=== PATIENT | male | born 1990 | race American Indian/Alaskan Native ===

== ENCOUNTER 2018-12-19 03:49 | Emergency (ER) | payer OTHER ==
[2018-12-19] MEDS ORDERED: NACL 0.9% 1000 ML 1,000 ML IV ONE (04:24)
[2018-12-19] MEDS ORDERED: KETAMINE HCL IV ONE ×2 (04:24→04:38)
[2018-12-19] MEDS ORDERED: ZOFRAN IV ONE (04:24)
[2018-12-19] MEDS ORDERED: DIPRIVAN 10 MG/ML IV ONE (04:24)
--- NOTE | 2018-12-19 04:27 | Emergency Department Report ---
ED Upper Extremity Inj HPI - General Chief Complaint: Shoulder Injury Stated Complaint: RIGHT SHOULDER PAIN Time Seen by Provider: 12/19/18 04:23 Source: patient, EMS (ems notes not available at time of chart dictation) Mode of arrival: Ambulatory Limitations: Physical Limitation - History of Present Illness Initial Comments: This is a pleasant 28-year-old gentleman, not known to this provider previously, right-hand dominant, with a history of multiple shoulder dislocations. The patient presents to the emergency room today with a complaint of spontaneous shoulder dislocation while sleeping. Patient reports at least 10 left shoulder dislocation, and in the past, has been able to self reduce. However, he has not been able to reduce the shoulder today. He has no other injuries, and no other complaints. MD Complaint: Injury to:: right, shoulder -: Sudden Other Extremity Injury: Shoulder: Left Other Injuries: none Handedness: right Place: home Context: other Associated Symptoms: denies other symptoms - Related Data Previous Rx's Medication Instructions Recorded Last Taken Type Acetaminophen [Tylenol Arthritis] 650 mg PO Q6HR PRN #30 tablet.er 12/19/18 Unknown Rx Ibuprofen [Motrin] 600 mg PO Q8H PRN #30 tablet 12/19/18 Unknown Rx Allergies Allergy/AdvReac Type Severity Reaction Status Date / Time No Known Allergies Allergy Verified 12/19/18 04:28 ED Review of Systems ROS: Stated complaint: RIGHT SHOULDER PAIN Other details as noted in HPI Constitutional: denies: fever Respiratory: denies: cough Cardiovascular: denies: chest pain Gastrointestinal: denies: abdominal pain Musculoskeletal: arthralgia, myalgia Skin: denies: lesions Neurological: denies: weakness, numbness, paresthesias ED Past Medical Hx - Past Medical History Previous Medical History?: No - Social History Smoking Status: Current Every Day Smoker Substance Use Type: None - Medications Home Medications: Home Medications Medication Instructions Recorded Confirmed Last Taken Type Acetaminophen [Tylenol Arthritis] 650 mg PO Q6HR PRN #30 tablet.er 12/19/18 Unknown Rx Ibuprofen [Motrin] 600 mg PO Q8H PRN #30 tablet 12/19/18 Unknown Rx ED Physical Exam - General Limitations: Physical Limitation General appearance: alert, anxious - Head Head exam: Present: atraumatic, normocephalic - Eye Eye exam: Present: normal appearance, EOMI. Absent: nystagmus - ENT ENT exam: Present: normal exam, normal orophraynx, mucous membranes moist - Neck Neck exam: Present: normal inspection, full ROM. Absent: tenderness, meningismus - Respiratory Respiratory exam: Present: normal lung sounds bilaterally. Absent: respiratory distress - Cardiovascular Cardiovascular Exam: Present: regular rate, normal rhythm, normal heart sounds. Absent: bradycardia, tachycardia, irregular rhythm, systolic murmur, diastolic murmur, rubs, gallop - GI/Abdominal GI/Abdominal exam: Present: soft. Absent: distended, tenderness, guarding, rebound, rigid, pulsatile mass - Rectal Rectal exam: Present: deferred - Extremities Exam Extremities exam: Present: tenderness, other (2+ pulses noted in the bilateral upper extremities. Left upper extremity nontender and within normal limits. Right upper extremity shows an obviously deformed shoulder, point tender at the shoulder, no distal right upper extremity tenderness. Moving the fingers bilaterally without difficulty. Muscular compartments soft.Sensation intact to light touch in the bilateral deltoid, median, radial, ulnar distribution.) - Back Exam Back exam: Present: normal inspection, full ROM. Absent: tenderness, CVA tenderness (R), paraspinal tenderness, vertebral tenderness - Neurological Exam Neurological exam: Present: alert, oriented X3, normal gait, other (Extraocular movements intact. Tongue midline. No facial droop. Facial sensation intact to light touch in the V1, V2, V3 distribution bilaterally. 5 and 5 strength in 4 extremities.. Sensation is intact to light touch in 4 extremities.) - Psychiatric Psychiatric exam: Present: normal affect, normal mood - Skin Skin exam: Present: warm, dry, intact, normal color. Absent: rash ED Course Vital Signs 12/19/18 12/19/18 12/19/18 03:52 03:53 04:15 Temperature 99.1 F 98 F Temperature [ Intra-Procedure ] Temperature [ Post-Procedure] Temperature [ Pre-Procedure] Pulse Rate 90 81 90 Pulse Rate [ Intra-Procedure ] Pulse Rate [ Post-Procedure] Pulse Rate [Pre -Procedure] Respiratory 98 H 18 12 Rate Respiratory Rate [Intra- Procedure] Respiratory Rate [Post- Procedure] Respiratory Rate [Pre- Procedure] Blood Pressure 133/85 Blood Pressure [Intra- Procedure] Blood Pressure 145/90 109/57 133/85 [Left] Blood Pressure [Post-Procedure ] Blood Pressure [Pre-Procedure] O2 Sat by Pulse 16 L 99 100 Oximetry O2 Sat by Pulse Oximetry [ Intra-Procedure ] O2 Sat by Pulse Oximetry [Post -Procedure] O2 Sat by Pulse Oximetry [Pre- Procedure] 12/19/18 12/19/18 12/19/18 04:50 04:55 05:01 Temperature Temperature [ 98 F Intra-Procedure ] Temperature [ 98 F Post-Procedure] Temperature [ 98 F Pre-Procedure] Pulse Rate 82 116 H 112 H Pulse Rate [ 116 H Intra-Procedure ] Pulse Rate [ 98 H Post-Procedure] Pulse Rate [Pre 82 -Procedure] Respiratory 13 26 H 23 Rate Respiratory 26 H Rate [Intra- Procedure] Respiratory 25 H Rate [Post- Procedure] Respiratory 13 Rate [Pre- Procedure] Blood Pressure 133/90 129/99 153/100 Blood Pressure 153/100 [Intra- Procedure] Blood Pressure [Left] Blood Pressure 147/98 [Post-Procedure ] Blood Pressure 129/99 [Pre-Procedure] O2 Sat by Pulse 100 100 97 Oximetry O2 Sat by Pulse 100 Oximetry [ Intra-Procedure ] O2 Sat by Pulse 100 Oximetry [Post -Procedure] O2 Sat by Pulse 100 Oximetry [Pre- Procedure] 12/19/18 12/19/18 12/19/18 05:05 05:11 05:15 Temperature Temperature [ Intra-Procedure ] Temperature [ Post-Procedure] Temperature [ Pre-Procedure] Pulse Rate 98 H 86 83 Pulse Rate [ Intra-Procedure ] Pulse Rate [ Post-Procedure] Pulse Rate [Pre -Procedure] Respiratory 25 H 26 H 25 H Rate Respiratory Rate [Intra- Procedure] Respiratory Rate [Post- Procedure] Respiratory Rate [Pre- Procedure] Blood Pressure 147/98 127/84 135/88 Blood Pressure [Intra- Procedure] Blood Pressure [Left] Blood Pressure [Post-Procedure ] Blood Pressure [Pre-Procedure] O2 Sat by Pulse 100 100 100 Oximetry O2 Sat by Pulse Oximetry [ Intra-Procedure ] O2 Sat by Pulse Oximetry [Post -Procedure] O2 Sat by Pulse Oximetry [Pre- Procedure] 12/19/18 12/19/18 12/19/18 05:20 05:30 05:45 Temperature Temperature [ Intra-Procedure ] Temperature [ Post-Procedure] Temperature [ Pre-Procedure] Pulse Rate 81 79 80 Pulse Rate [ Intra-Procedure ] Pulse Rate [ Post-Procedure] Pulse Rate [Pre -Procedure] Respiratory 20 21 19 Rate Respiratory Rate [Intra- Procedure] Respiratory Rate [Post- Procedure] Respiratory Rate [Pre- Procedure] Blood Pressure 125/78 131/89 131/90 Blood Pressure [Intra- Procedure] Blood Pressure [Left] Blood Pressure [Post-Procedure ] Blood Pressure [Pre-Procedure] O2 Sat by Pulse 100 100 100 Oximetry O2 Sat by Pulse Oximetry [ Intra-Procedure ] O2 Sat by Pulse Oximetry [Post -Procedure] O2 Sat by Pulse Oximetry [Pre- Procedure] 12/19/18 12/19/18 12/19/18 06:00 06:15 06:31 Temperature Temperature [ Intra-Procedure ] Temperature [ Post-Procedure] Temperature [ Pre-Procedure] Pulse Rate 84 83 75 Pulse Rate [ Intra-Procedure ] Pulse Rate [ Post-Procedure] Pulse Rate [Pre -Procedure] Respiratory 18 19 20 Rate Respiratory Rate [Intra- Procedure] Respiratory Rate [Post- Procedure] Respiratory Rate [Pre- Procedure] Blood Pressure 138/94 119/74 129/74 Blood Pressure [Intra- Procedure] Blood Pressure [Left] Blood Pressure [Post-Procedure ] Blood Pressure [Pre-Procedure] O2 Sat by Pulse 100 99 Oximetry O2 Sat by Pulse Oximetry [ Intra-Procedure ] O2 Sat by Pulse Oximetry [Post -Procedure] O2 Sat by Pulse Oximetry [Pre- Procedure] 12/19/18 12/19/18 12/19/18 06:45 08:05 08:09 Temperature Temperature [ Intra-Procedure ] Temperature [ Post-Procedure] Temperature [ Pre-Procedure] Pulse Rate 82 88 Pulse Rate [ Intra-Procedure ] Pulse Rate [ 82 Post-Procedure] Pulse Rate [Pre -Procedure] Respiratory 18 21 Rate Respiratory Rate [Intra- Procedure] Respiratory 21 Rate [Post- Procedure] Respiratory Rate [Pre- Procedure] Blood Pressure 129/78 Blood Pressure [Intra- Procedure] Blood Pressure 114/73 [Left] Blood Pressure 114/73 [Post-Procedure ] Blood Pressure [Pre-Procedure] O2 Sat by Pulse Oximetry O2 Sat by Pulse Oximetry [ Intra-Procedure ] O2 Sat by Pulse 98 Oximetry [Post -Procedure] O2 Sat by Pulse Oximetry [Pre- Procedure] - Moderate Sedation Indications: fracture/dislocation redu Presedation Evaluation: 28-year-old gentleman, no chronic medical conditions, no acute medical decompensation, airway patent and intact, speaking in full sentences, last ate at 10:00 PM on the preceding night. ASA Class: I Mallampati Airway Score: 1 Preparation: digital manager applied, pulse oximeter, capnometry used, supplemental O2 applied, suction/airway equipment at bedside Ketamine: IV Ketamine Dose: 50 IV Propofol Dose (mgs): 50 Complications: none Patient Tolerated Procedure: well - Orthopedic Joint Reduction Joint #1 Consent Obtained: verbal consent, written consent, emergent situation Time Out Performed: Yes Side: right Joint Reduction Location: shoulder Analgesia: moderate sedation Technique Used: direct manipulation Post-Reduction Neuro Exam: intact Post-Reduction Vascular Exam: intact Post Reduction X-Ray Obtained: Yes Post Reduction X-Ray Results: reduced Splint Applied: Yes Patient Tolerated Procedure: well ED Medical Decision Making - Lab Data Vital Signs 12/19/18 12/19/18 12/19/18 03:52 03:53 04:15 Temperature 99.1 F 98 F Pulse Rate 90 81 90 Respiratory 98 H 18 12 Rate Blood Pressure 133/85 Blood Pressure 145/90 109/57 133/85 [Left] O2 Sat by Pulse 16 L 99 100 Oximetry 12/19/18 12/19/18 12/19/18 04:50 04:55 05:01 Temperature Pulse Rate 82 116 H 112 H Respiratory 13 26 H 23 Rate Blood Pressure 133/90 129/99 153/100 Blood Pressure [Left] O2 Sat by Pulse 100 100 97 Oximetry 12/19/18 05:05 Temperature Pulse Rate 98 H Respiratory 25 H Rate Blood Pressure 147/98 Blood Pressure [Left] O2 Sat by Pulse 100 Oximetry - Radiology Data Radiology results: report reviewed, image reviewed X-ray of the right shoulder initially demonstrates a right-sided shoulder dislocation. Postprocedural x-ray demonstrate appropriate reduction. - Medical Decision Making Differential diagnosis, including but not limited to: Recurrent shoulder dislocation Assessment and plan: 28-year-old gentleman, right-hand dominant, with recurrent shoulder dislocation, now resolved after successful reduction with moderate sedation. No obvious neurovascular deficits. No other obvious injuries. Patient is currently in a right shoulder sling. Counseled to follow up with outpatient orthopedics. Return precautions reviewed. Critical care attestation.: If time is entered above; I have spent that time in minutes in the direct care of this critically ill patient, excluding procedure time. ED Disposition Clinical Impression: Recurrent dislocation, right shoulder Disposition: DC-01 TO HOME OR SELFCARE Is pt being admited?: No Does the pt Need Aspirin: No Condition: Stable Instructions: Shoulder Dislocation (ED), Moderate Sedation (ED) Additional Instructions: Keep this shoulder sling in place, and did not take it off until cleared by an orthopedic physician. Patient most likely has rotator cuff/ligamentous/soft tissue injury to the right shoulder. Patient should follow-up with an orthopedic surgeon for further evaluation for this within the next 5-7 days. Take the pain medication as needed/directed. Return to the emergency room right away with new pain, worsened pain, migration of pain, projectile vomiting, change in mental status, confusion, extremity weakness, numbness, new, worsening or different symptoms. Prescriptions: Ibuprofen [Motrin] 600 mg PO Q8H PRN #30 tablet PRN Reason: Pain Acetaminophen [Tylenol Arthritis] 650 mg PO Q6HR PRN #30 tablet.er PRN Reason: Pain Referrals: [facility] [Provider Group] - 3-5 Days KENDRA GODINEZ MD [Staff Physician] - 3-5 Days Forms: Work/School Release Form(ED)
--- NOTE | 2018-12-19 04:44 | XRay Report ---
PROCEDURE: XR SHOULDER 2+V RT TECHNIQUE: 4 views of the right shoulder were obtained. HISTORY: dISLOCATION COMPARISONS: None FINDINGS: There is an inferior subcoracoid dislocation of the humeral head. There is no associated fracture. Th e AC joint appears normal. The soft tissues are unremarkable. IMPRESSION: Inferior subcoracoid dislocation of the humeral head.. This document is electronically signed by Alejandro Lopez MD., December 19 2018 04:42:35 AM ET
--- NOTE | 2018-12-19 05:42 | XRay Report ---
PROCEDURE: XR SHOULDER 2+V RT TECHNIQUE: 2 AP views of the right shoulder HISTORY: Post reduction COMPARISONS: Earlier exam of the same date FINDINGS: A large Hill-Sachs impaction deformity is demonstrated in the right humeral head status post reductio n. Alignment is improved, and no dislocation is demonstrated. No displaced fracture identified. Acrom ioclavicular and coracoclavicular intervals are within normal limits. Incomplete evaluation of the ad jacent right lung is unremarkable. IMPRESSION: Improved alignment of the right glenohumeral joint status post reduction. No dislocation is demonstra ethan on these views. A large Hill-Sachs impaction deformity is present. This document is electronically signed by Vidal Malone MD., December 19 2018 05:39:52 AM ET
[2018-12-19 08:09] VITALS: BP 114/73
== END 2018-12-19 07:55 | disposition home or self-care (01) ==
LOC: ED 03:49
DX: M24.411 Recurrent dislocation, right shoulder (principal); F17.200 Nicotine dependence, unspecified, uncomplicated
CPT/HCPCS: 23650; 73030; 96374; 99285; J2405; J2704; J7030

== ENCOUNTER 2018-12-29 15:25 | Emergency (ER) | payer OTHER ==
--- NOTE | 2018-12-29 15:45 | Emergency Department Report ---
Blank Doc - Documentation Documentation: This is a 28-year-old male that presents with right shoulder pain. denies any injuries. HX of dislocation. This initial assessment/diagnostic orders/clinical plan/treatment(s) is/are subject to change based on patient's health status, clinical progression and re- assessment by fellow clinical providers in the ED. Further treatment and workup at subsequent clinical providers discretion. Patient/guardians urged not to elope from the ED as their condition may be serious if not clinically assessed and managed. Initial orders include: 1- Patient sent to [facility] for further evaluation and treatment 2- xray
--- NOTE | 2018-12-29 16:22 | XRay Report ---
PROCEDURE: XR SHOULDER 2+V RT TECHNIQUE: Right shoulder radiographs, two views. HISTORY: right shoulder pain COMPARISONS: 12/19/2018 . FINDINGS: There has been anterior dislocation of the right humeral head. No acute fracture is seen. The acromio clavicular joint is intact. IMPRESSION: There has been anterior dislocation of the right humeral head . This document is electronically signed by Nai Otoole MD., December 29 2018 04:20:34 PM ET
[2018-12-29] MEDS ORDERED: NORCO 10/325 PO ONE (17:13)
[2018-12-29] MEDS ORDERED: NACL 0.9% 1000 ML 1,000 ML IV ONE (19:10)
[2018-12-29] MEDS ORDERED: ZOFRAN IV ONE (20:34)
[2018-12-29] MEDS ORDERED: TORADOL IV ONE (20:34)
[2018-12-29] MEDS ORDERED: SUBLIMAZE IV ONE ×2 (20:34→21:08)
--- NOTE | 2018-12-29 20:38 | Emergency Department Report ---
HPI - General Chief Complaint: Extremity Problem,Nontraumatic Time Seen by Provider: 12/29/18 15:44 - HPI HPI: Room 18 The patient is a 28-year-old male presenting with chief complaint right shoulder pain. The patient states she has a history of multiple dislocations in the right shoulder. The patient states this morning at 10:00 after waking up and pushed himself up on the bed he heard a pop and had pain in his right shoulder. Patient gets his pain score of "1000/10" patient states his last po occurred at approximately noon Location: Right shoulder Duration: Onset at 10:00 Quality: Pain Severity: "1000/10" Modifying factors: [see above] Context: [see above] Mode of transportation: [not driving] ED Past Medical Hx - Past Medical History Additional medical history: REPEAT DISLOCATION OF RIGHT SHOULDER - Surgical History Past Surgical History?: No - Family History Family history: no significant - Social History Smoking Status: Current Some Day Smoker Substance Use Type: None (denies illicit drug use) - Medications Home Medications: Home Medications Medication Instructions Recorded Confirmed Last Taken Type Acetaminophen [Tylenol Arthritis] 650 mg PO Q6HR PRN #30 tablet.er 12/19/18 Unknown Rx Ibuprofen [Motrin] 600 mg PO Q8H PRN #30 tablet 12/19/18 Unknown Rx Cyclobenzaprine [Flexeril] 10 mg PO TID PRN #14 tablet 12/29/18 Unknown Rx HYDROcodone/APAP 5-325 [[place] 1 - 2 each PO Q6HR PRN #14 tablet 12/29/18 Unknown Rx 5/325] Ibuprofen [Motrin 800 MG tab] 800 mg PO Q8HR PRN #20 tablet 12/29/18 Unknown Rx ED Review of Systems ROS: Stated complaint: RT SHOULDER DISLOCATED Other details as noted in HPI Constitutional: no symptoms reported Eyes: denies: eye pain ENT: denies: throat pain Respiratory: no symptoms reported Cardiovascular: denies: chest pain Endocrine: no symptoms reported Gastrointestinal: denies: abdominal pain Genitourinary: denies: dysuria Musculoskeletal: arthralgia Neurological: denies: headache Physical Exam - Physical Exam Vital Signs: Vital Signs 12/29/18 12/29/18 12/29/18 15:42 17:40 19:39 Temperature 98.8 F 98.2 F Pulse Rate 94 H 61 Respiratory 20 18 18 Rate Blood Pressure 141/90 Blood Pressure 139/94 [Left] O2 Sat by Pulse 100 Oximetry Physical Exam: GENERAL: The patient is well-developed well-nourished male lying on stretcher appearing to be in moderate discomfort. [] HEENT: Normocephalic. Atraumatic. Extraocular motions are intact. Patient has moist mucous membranes. NECK: Supple. Trachea midline CHEST/LUNGS: Clear to auscultation. There is no respiratory distress noted. HEART/CARDIOVASCULAR: Regular. There is no tachycardia. 2+ right radial pulse SKIN: There is no rash. There is no edema. There is no diaphoresis. NEURO: The patient is awake, alert, and oriented. The patient is cooperative. The patient has no focal neurologic deficits. The patient has normal speech. Normal sensation to light touch of the right upper extremity MUSCULOSKELETAL: There is right shoulder deformity ED Course Vital Signs 12/29/18 12/29/18 12/29/18 15:42 17:40 19:39 Temperature 98.8 F 98.2 F Pulse Rate 94 H 61 Respiratory 20 18 18 Rate Blood Pressure 141/90 Blood Pressure 139/94 [Left] O2 Sat by Pulse 100 Oximetry - Moderate Sedation Indications: fracture/dislocation redu ASA Class: II Mallampati Airway Score: 3 Preparation: kennel manager dog track applied, pulse oximeter, capnometry used, supplemental O2 applied, suction/airway equipment at bedside, IV secured IV Etomidate Dose (mgs): 12 Complications: none Patient Tolerated Procedure: well, no complications - Orthopedic Joint Reduction Joint #1 Consent Obtained: verbal consent Time Out Performed: No Side: right Joint Reduction Location: shoulder Analgesia: moderate sedation Shoulder Technique Used (if applicable): traction/counter-traction Post-Reduction Neuro Exam: intact Post-Reduction Vascular Exam: intact Post Reduction X-Ray Obtained: Yes Post Reduction X-Ray Results: reduced Splint Applied: Yes Patient Tolerated Procedure: no complications ED Medical Decision Making - Radiology Data Radiology results: report reviewed (right shoulder x-ray), image reviewed (right shoulder x-ray, right shoulder x-ray #2) interpreted by me: Right shoulder [id number] dislocation Right shoulder x-ray #2-anatomic Right shoulder [id number] dislocation - Differential Diagnosis shoulder dislocation, humerus fracture Critical care attestation.: If time is entered above; I have spent that time in minutes in the direct care of this critically ill patient, excluding procedure time. ED Disposition Clinical Impression: Anterior dislocation of right shoulder, Acute shoulder pain Disposition: TO HOME OR SELFCARE Is pt being admited?: No Does the pt Need Aspirin: No Condition: Stable Instructions: Shoulder Dislocation (ED) Additional Instructions: Return to the emergency department immediately should you develop worsening symptoms, fever, inability to tolerate food or liquid or any other concerns. Prescriptions: Cyclobenzaprine [Flexeril] 10 mg PO TID PRN #14 tablet PRN Reason: Muscle Spasm Ibuprofen [Motrin 800 MG tab] 800 mg PO Q8HR PRN #20 tablet PRN Reason: Pain, Moderate (4-6) HYDROcodone/APAP 5-325 [[place] 5/325] 1 - 2 each PO Q6HR PRN #14 tablet PRN Reason: Pain Referrals: [facility] MD MALORIE [Primary Care Provider] - 3-5 Days KENDRA OVIEDO MD [Staff Physician] - 3-5 Days (Dr. Oviedo is an orthopedic surgeon. Please follow up with him for further evaluation) Time of Disposition: 21:38
[2018-12-29] MEDS ORDERED: ZOFRAN ONE (20:39)
[2018-12-29] MEDS ORDERED: SUBLIMAZE ONE (20:40)
[2018-12-29] MEDS ORDERED: AMIDATE IV ONE (20:57)
[2018-12-29 21:37] VITALS: BP 127/88
--- NOTE | 2018-12-29 21:41 | XRay Report ---
PROCEDURE: XR SHOULDER 1V RT TECHNIQUE: Right shoulder radiograph, single frontal view. HISTORY: post reduction COMPARISONS: 12/29/2018 . FINDINGS: Fracture (s) and/or Dislocation(s): None . Joint space(s): Normal . Soft tissues: Normal . Bone mineralization: Normal . Foreign bodies: None . IMPRESSION: Normal alignment of the glenohumeral joint. . This document is electronically signed by Conner Gamboa MD., December 29 2018 09:38:51 PM ET
== END 2018-12-29 22:15 | disposition home or self-care (01) ==
LOC: ED 15:25
DX: S43.004A Unspecified dislocation of right shoulder joint, initial encounter (principal); F17.200 Nicotine dependence, unspecified, uncomplicated; X58.XXXA Exposure to other specified factors, initial encounter; Y93.89 Activity, other specified; Y92.89 Other specified places as the place of occurrence of the external cause; Y99.8 Other external cause status
CPT/HCPCS: 23650; 73020; 73030; 96374; 96375; 99284; J1885; J2405; J3010; J7030

== ENCOUNTER 2019-03-27 10:09 | Emergency (ER) | payer SELFPAY ==
--- NOTE | 2019-03-27 11:23 | Emergency Department Report ---
HPI - General Chief Complaint: Shoulder Injury Time Seen by Provider: 03/27/19 10:35 - HPI HPI: 28-year-old male presents to the emergency department with a complaint of right shoulder pain and suspicion of a right shoulder dislocation. He says that this happened at night while he was sleeping. 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 He is right-hand dominant. He says that he usually will try and put it back in place himself but the last 2 times he has been unable to do so. He is seen orthopedist in the past and says that he is due for surgery but does not have the time or finances at this moment. Patient last ate at dinner last night. ED Past Medical Hx - Past Medical History Previous Medical History?: Yes Additional medical history: REPEAT DISLOCATION OF RIGHT SHOULDER - Surgical History Past Surgical History?: No - Social History Smoking Status: Never Smoker Substance Use Type: None - Medications Home Medications: Home Medications Medication Instructions Recorded Confirmed Last Taken Type Acetaminophen [Tylenol Arthritis] 650 mg PO Q6HR PRN #30 tablet.er 12/19/18 Unknown Rx Ibuprofen [Motrin] 600 mg PO Q8H PRN #30 tablet 12/19/18 Unknown Rx Cyclobenzaprine [Flexeril] 10 mg PO TID PRN #14 tablet 12/29/18 Unknown Rx Ibuprofen [Motrin 800 MG tab] 800 mg PO Q8HR PRN #20 tablet 12/29/18 Unknown Rx HYDROcodone/APAP 5-325 [[place] 1 each PO Q6HR PRN #12 tablet 03/27/19 Unknown Rx 5-325 mg TAB] ED Review of Systems ROS: Stated complaint: DISLOCATED RT SHOULDER Other details as noted in HPI Comment: All other systems reviewed and negative Constitutional: denies: chills, fever Eyes: denies: eye pain, vision change ENT: denies: ear pain, throat pain Respiratory: denies: cough, shortness of breath Cardiovascular: denies: chest pain, palpitations Gastrointestinal: denies: abdominal pain, vomiting Genitourinary: denies: dysuria, discharge Musculoskeletal: arthralgia. denies: back pain Skin: denies: rash, lesions Neurological: denies: headache, numbness, paresthesias Physical Exam - Physical Exam Vital Signs: Vital Signs 03/27/19 10:14 Temperature 98.5 F Pulse Rate 82 Respiratory 16 Rate Blood Pressure 116/92 [Left] O2 Sat by Pulse 100 Oximetry Physical Exam: GENERAL: The patient is well-developed well-nourished. HENT: Normocephalic. Atraumatic. Patient has moist mucous membranes. EYES: Extraocular motions are intact. NECK: Supple. Trachea is midline. CHEST/LUNGS: Clear to auscultation. There is no respiratory distress noted. HEART/CARDIOVASCULAR: Regular. There is no tachycardia. There is no murmur. ABDOMEN: There is no abdominal distention. SKIN: Skin is warm and dry. NEURO: The patient is awake, alert, and oriented. The patient is cooperative. The patient has no focal neurologic deficits. The patient has normal speech. MUSCULOSKELETAL: There is tenderness to palpation to the right shoulder. He is holding the right upper extremity and internal rotation against the body and there is decreased range of motion of the right upper extremity secondary to right shoulder pain and suspicion for dislocation. Radial pulse +2 over 4 and capillary refill less than 2 seconds to the affected right upper extremity. ED Course Vital Signs 03/27/19 10:14 Temperature 98.5 F Pulse Rate 82 Respiratory 16 Rate Blood Pressure 116/92 [Left] O2 Sat by Pulse 100 Oximetry - Consultations Consultation #1: I spoke with the orthopedist on-call, Dr. Oviedo, who is aware of our attempts to reduce the shoulder dislocation. He is currently doing a hip repair in the operating room and will come down to the emergency department to attempt reduction after that. 03/27/19 12:37 - Moderate Sedation Indications: fracture/dislocation redu ASA Class: I Mallampati Airway Score: 1 Preparation: child monitor applied, pulse oximeter, capnometry used, supplemental O2 applied, suction/airway equipment at bedside, IV secured Ketamine: IV Ketamine Dose: 100 (Given in two increments) IV Propofol Dose (mgs): 130 (Given in three increments over the length of the procedure) Complications: none Patient Tolerated Procedure: well - Orthopedic Joint Reduction Joint #1 Consent Obtained: written consent Time Out Performed: Yes Side: right Joint Reduction Location: shoulder Analgesia: moderate sedation Shoulder Technique Used (if applicable): traction/counter-traction, external rotation, Oneil Post-Reduction Neuro Exam: intact Post-Reduction Vascular Exam: intact Post Reduction X-Ray Obtained: Yes Post Reduction X-Ray Results: not reduced Patient Tolerated Procedure: well ED Medical Decision Making - Radiology Data Radiology results: image reviewed interpreted by me: Initial right shoulder x-ray shows inferior anterior dislocation but no fracture. Postreduction x-ray shows appropriate reduction of the humeral head into the glenohumeral joint - Medical Decision Making This patient came in with a right shoulder dislocation that is a recurrent issue for him. He was neurovascularly intact. X-ray confirms anterior inferior dislocation. At first, the patient requested an attempt be made without any type of sedation. I attempted the Riggs technique without success as the patient could not tolerate it without any type of pain medication or sedation. He was then set up for a conscious sedation and the patient received ketamine and propofol as listed in the procedure section. These medications were not given all at once but was spread out over the initial attempt. I was unable to reduce this dislocation and my colleague also made attempts without any success. At this point we called the on-call orthopedist who came down to the emergency department and was able to reduce the dislocation with another moderate sed ation using Versed. The patient was immediately placed in a shoulder immobilizer/sling. He was monitored for the next 2-3 hours until he was completely awake, alert, and there were no signs of effects from the medications given during conscious sedation. The patient understands the importance of follow-up with orthopedist. He will return to the ER with any worsening of his symptoms or any acute distress. - Differential Diagnosis shoulder dislocation, subluxation, fracture Critical Care Time: No Critical care attestation.: If time is entered above; I have spent that time in minutes in the direct care of this critically ill patient, excluding procedure time. ED Disposition Clinical Impression: Dislocation of right shoulder joint Qualifiers: Encounter type: initial encounter Qualified Code(s): S43.004A - Unspecified d islocation of right shoulder joint, initial encounter Recurrent shoulder dislocation Qualifiers: Laterality: right Qualified Code(s): M24.411 - Recurrent dislocation, right shoulder Disposition: DC-01 TO HOME OR SELFCARE Is pt being admited?: No Condition: Stable Instructions: Shoulder Dislocation (ED), Moderate Sedation (ED) Additional Instructions: Please follow up with orthopedist regarding your recurrent right shoulder dislocations. Remain in the shoulder immobilizer until follow-up with the orthopedist. I have given him a referral for Dr. Oviedo, the orthopedist who saw you in the emergency department today. Return to the emergency Department with any worsening of your symptoms or any acute distress. You have been prescribed a medication that is sedating and therefore should not be taken prior to driving, working, and responsible for children and in no way should be mixed with alcohol of any quantity. Prescriptions: HYDROcodone/APAP 5-325 [Boutte 5-325 mg TAB] 1 each PO Q6HR PRN #12 tablet PRN Reason: Pain Referrals: KENDRA OVIEDO MD [Staff Physician] - 2-3 Days Time of Disposition: 16:44
[2019-03-27] MEDS ORDERED: DIPRIVAN 10 MG/ML IV ONE ×2 (11:25→11:52)
[2019-03-27] MEDS ORDERED: KETALAR IV ONE ×2 (11:25→11:50)
[2019-03-27] MEDS ORDERED: NACL 0.9% 1000 ML 1,000 ML IV ONE (11:25)
--- NOTE | 2019-03-27 11:29 | XRay Report ---
RIGHT SHOULDER, 3 VIEWS INDICATION: Right shoulder dislocation for one day. COMPARISON: None. IMPRESSION: Anterior, inferior dislocation is identified at the right glenohumeral joint. Normal art iculation at the AC joint. No evidence for fracture or bone lesion. The soft tissues are unremarkabl e. Signer Name: Jalen Fuentes Jr, MD Signed: 03/27/2019 11:25 AM Workstation Name: [id number]
--- NOTE | 2019-03-27 12:40 | XRay Report ---
RIGHT SHOULDER ONE VIEW CLINICAL: Dislocation. COMPARISON: Same day at 1038 FINDINGS: Persistent inferior dislocation of the humeral head relative to the glenoid. IMPRESSION: Persistent shoulder dislocation. Signer Name: Lance Gallardo MD Signed: 03/27/2019 12:36 PM Workstation Name: [id number]
[2019-03-27] MEDS ORDERED: VERSED IV ONE (13:33)
[2019-03-27 16:39] VITALS: BP 116/78
--- NOTE | 2019-03-27 17:36 | XRay Report ---
RIGHT SHOULDER 2 VIEWS 4:57 PM INDICATION / CLINICAL INFORMATION: Postreduction. COMPARISON: Earlier today at 12:23 PM FINDINGS: BONES / JOINT(S): The previously described anterior/inferior shoulder dislocation has been reduced. T here is a small Hill-Sachs lesion involving the humeral head superolaterally. SOFT TISSUES: No significant abnormality. ADDITIONAL FINDINGS: None. IMPRESSION: Interval reduction of the previously described right anterior shoulder dislocation. Signer Name: Alejandro Tello MD Signed: 03/27/2019 5:31 PM Workstation Name: [id number]
== END 2019-03-27 17:38 | disposition home or self-care (01) ==
LOC: ED 10:09
DX: S43.004A Unspecified dislocation of right shoulder joint, initial encounter (principal); Z79.1 Long term (current) use of non-steroidal anti-inflammatories (NSAID); Z79.899 Other long term (current) drug therapy; X58.XXXA Exposure to other specified factors, initial encounter; Y93.84 Activity, sleeping; Y92.89 Other specified places as the place of occurrence of the external cause; Y99.8 Other external cause status
CPT/HCPCS: 23650; 73020; 73030; 96374; 96375; 99284; J2250; J2704; J7030

== ENCOUNTER 2019-05-03 12:47 | Emergency (ER) | payer SELFPAY ==
--- NOTE | 2019-05-03 13:27 | XRay Report ---
RIGHT SHOULDER, 3 VIEWS, 05/03/2019 INDICATION / CLINICAL INFORMATION: pain, r/o dislocation. COMPARISON: 03/27/2019 FINDINGS: There is an anterior dislocation of the glenohumeral joint present. The humeral head appears inferior to the glenoid. No definite fracture or other significant abnormality noted. Visualized ribs are intact. IMPRESSION: Anterior dislocation of the glenohumeral joint. Signer Name: Sury Villarreal MD Signed: 05/03/2019 1:23 PM Workstation Name: [id number]
[2019-05-03] MEDS ORDERED: SUBLIMAZE IV ONE (13:29)
[2019-05-03] MEDS ORDERED: NACL 0.9% 1000 ML 1,000 ML IV ONE (13:30)
[2019-05-03] MEDS ORDERED: AMIDATE IV ONE ×2 (13:33→17:37)
--- NOTE | 2019-05-03 13:34 | Emergency Department Report ---
ED General Adult HPI - General Chief complaint: Shoulder Injury Stated complaint: RT SHOULDER DISLOCATED/PAIN Time Seen by Provider: 05/03/19 13:29 Source: patient Mode of arrival: Ambulatory Limitations: No Limitations - History of Present Illness Initial comments: 29-year-old male states he has dislocated his right shoulder "10 times this year". Despite this he has never seen an orthopedist. He states he is trying to open a refrigerator door when his shoulder popped out again. He states he ate a donut 2 hours prior but nothing else. He has no prior problems with procedural sedative medications. He denies other injury. He denies other medical problems. -: Sudden, hour(s) Location: right, upper extremity Radiation: non-radiation Quality: aching Consistency: constant Associated Symptoms: denies other symptoms - Related Data Previous Rx's Medication Instructions Recorded Last Taken Type Acetaminophen [Tylenol Arthritis] 650 mg PO Q6HR PRN #30 tablet.er 12/19/18 Unknown Rx Ibuprofen [Motrin] 600 mg PO Q8H PRN #30 tablet 12/19/18 Unknown Rx Cyclobenzaprine [Flexeril] 10 mg PO TID PRN #14 tablet 12/29/18 Unknown Rx Ibuprofen [Motrin 800 MG tab] 800 mg PO Q8HR PRN #20 tablet 12/29/18 Unknown Rx HYDROcodone/APAP 5-325 [[place] 1 each PO Q6HR PRN #12 tablet 03/27/19 Unknown Rx 5-325 mg TAB] Allergies Allergy/AdvReac Type Severity Reaction Status Date / Time No Known Allergies Allergy Verified 12/29/18 15:26 ED Review of Systems ROS: Stated complaint: RT SHOULDER DISLOCATED/PAIN Other details as noted in HPI Comment: All other systems reviewed and negative ED Past Medical Hx - Past Medical History Previous Medical History?: Yes Additional medical history: REPEAT DISLOCATION OF RIGHT SHOULDER - Surgical History Past Surgical History?: No - Social History Smoking Status: Current Every Day Smoker Substance Use Type: None - Medications Home Medications: Home Medications Medication Instructions Recorded Confirmed Last Taken Type Acetaminophen [Tylenol Arthritis] 650 mg PO Q6HR PRN #30 tablet.er 12/19/18 Unknown Rx Ibuprofen [Motrin] 600 mg PO Q8H PRN #30 tablet 12/19/18 Unknown Rx Cyclobenzaprine [Flexeril] 10 mg PO TID PRN #14 tablet 12/29/18 Unknown Rx Ibuprofen [Motrin 800 MG tab] 800 mg PO Q8HR PRN #20 tablet 12/29/18 Unknown Rx HYDROcodone/APAP 5-325 [[place] 1 each PO Q6HR PRN #12 tablet 03/27/19 Unknown Rx 5-325 mg TAB] ED Physical Exam - General Limitations: No Limitations General appearance: alert, in no apparent distress - Head Head exam: Present: atraumatic, normocephalic - Eye Eye exam: Present: normal appearance. Absent: scleral icterus - ENT ENT exam: Present: mucous membranes moist - Neck Neck exam: Present: normal inspection - Respiratory Respiratory exam: Present: normal lung sounds bilaterally. Absent: respiratory distress - Cardiovascular Cardiovascular Exam: Present: regular rate, normal rhythm. Absent: systolic murmur, diastolic murmur, rubs, gallop - GI/Abdominal GI/Abdominal exam: Present: soft, normal bowel sounds - Rectal Rectal exam: Present: deferred - Extremities Exam Extremities exam: Present: tenderness, normal capillary refill, other (apparent anterior dislocation on examination (closed) neurovascular exam is intact.). Absent: full ROM - Back Exam Back exam: Present: normal inspection - Neurological Exam Neurological exam: Present: alert, oriented X3, CN II-XII intact. Absent: motor sensory deficit - Psychiatric Psychiatric exam: Present: normal affect, normal mood - Skin Skin exam: Present: warm, dry, intact, normal color. Absent: rash ED Course Vital Signs 05/03/19 12:51 Temperature 98.6 F Pulse Rate 94 H Respiratory 16 Rate Blood Pressure 113/74 O2 Sat by Pulse 99 Oximetry - Moderate Sedation Indications: fracture/dislocation redu ASA Class: I Mallampati Airway Score: 1 Preparation: conveyor monitor applied, pulse oximeter, capnometry used, supplemental O2 applied, reversal agents at bedside, suction/airway equipment at bedside, IV secured Fentanyl: IV IV Etomidate Dose (mgs): 12 Complications: none Patient Tolerated Procedure: well - Orthopedic Joint Reduction Joint #1 Consent Obtained: verbal consent Time Out Performed: Yes Side: right Joint Reduction Location: shoulder Analgesia: moderate sedation Shoulder Technique Used (if applicable): traction/counter-traction, other (Stone) Technique Used: traction/counter-traction, direct manipulation, other Post-Reduction Neuro Exam: intact Post-Reduction Vascular Exam: intact Post Reduction X-Ray Obtained: Yes Post Reduction X-Ray Results: reduced Splint Applied: Yes Patient Tolerated Procedure: well Critical care attestation.: If time is entered above; I have spent that time in minutes in the direct care of this critically ill patient, excluding procedure time. ED Disposition Clinical Impression: Anterior dislocation of right shoulder Qualifiers: Encounter type: initial encounter Qualified Code(s): S43.014A - Anterior dislocation of right humerus, initial encounter Disposition: TO HOME OR SELFCARE Is pt being admited?: No Does the pt Need Aspirin: No Condition: Stable Instructions: Shoulder Dislocation (ED) Additional Instructions: Recurrent dislocation is generally indicative of a need for an orthopedic procedure to prevent this in the future, otherwise it will recur. See Dr. Oviedo for further evaluation and care. Sling times next 1-2 days. Ibuprofen [id number]. Referrals: KENDRA OVIEDO MD [Staff Physician] - 3-5 Days Time of Disposition: 14:40
--- NOTE | 2019-05-03 14:25 | XRay Report ---
RIGHT SHOULDER 2 VIEWS INDICATION / CLINICAL INFORMATION: Right shoulder dislocation. COMPARISON: Right shoulder series from earlier today. FINDINGS: BONES and JOINT(S): The glenohumeral joint remains dislocated anteriorly. No acute displaced fracture is identified. The AC joint is maintained. SOFT TISSUES: Mild edema is noted along the shoulder. ADDITIONAL FINDINGS: None. IMPRESSION: Persistent anterior dislocation of the right shoulder. Signer Name: Kwame Robles MD Signed: 05/03/2019 2:21 PM Workstation Name: [id number]
[2019-05-03 14:49] VITALS: BP 133/87
--- NOTE | 2019-05-03 15:56 | XRay Report ---
RIGHT SHOULDER, 2 VIEWS, POST REDUCTION INDICATION / CLINICAL INFORMATION: postreduction view. Anterior dislocation COMPARISON: Comparison is with earlier radiographs showing an anterior dislocation of the right shoulder. FINDINGS: Post reduction views demonstrate relocation of the previously noted anterior dislocation. Alignment o f the glenohumeral joint is now normal. No fracture is identified. IMPRESSION: Successful reduction of right shoulder dislocation. Signer Name: Sury Villarreal MD Signed: 05/03/2019 3:52 PM Workstation Name: [id number]
== END 2019-05-03 15:00 | disposition home or self-care (01) ==
LOC: ED 12:47
DX: S43.004A Unspecified dislocation of right shoulder joint, initial encounter (principal); F17.200 Nicotine dependence, unspecified, uncomplicated; X58.XXXA Exposure to other specified factors, initial encounter; Y93.89 Activity, other specified; Y92.89 Other specified places as the place of occurrence of the external cause; Y99.8 Other external cause status
CPT/HCPCS: 23650; 73030; 99284; J3010; J7030